=== PATIENT | male | born 1940 | race Caucasian/White ===

== ENCOUNTER 2018-08-14 14:51 | Emergency (ER) | payer MEDICARE, BC ==
[2018-08-14 15:14] VITALS: BP 137/77
[2018-08-14] MEDS ORDERED: Triamcinolone Acetonide* 40 MG/ML 1 ML VIAL IM ONE (15:56)
--- NOTE | 2018-08-14 15:56 | UC ---
Skin Complaint HPI - HPI Summary HPI Summary: 77 yo male with poison gayle x 1 week on arms and abd some areas oozing - History of Current Complaint Chief Complaint: UCSkin Time Seen by Provider: 08/14/18 15:51 Stated Complaint: RASH Hx Obtained From: Patient Onset/Duration: Sudden Onset Skin Exposure Onset/Duration: Minutes Ago Onset Severity: Mild Current Severity: None Pain Intensity: 0 Pain Scale Used: 0-10 Numeric Location: Other - see HPI Character: Pruritus, Pain, Redness Aggravating Factor(s): Nothing Alleviating Factor(s): OTC Meds Associated Signs & Symptoms: Positive: Rash - Allergy/Home Medications Allergies/Adverse Reactions: Allergies Allergy/AdvReac Type Severity Reaction Status Date / Time MS Penicillins [Penicillins] Allergy Hives Verified 10/20/12 07:31 Penicillins Allergy Hives Verified 08/14/18 15:07 Home Medications: Home Medications Aspirin 81 mg PO DAILY 08/14/18 [History Confirmed 08/14/18] Atenolol 12.5 mg PO DAILY 08/14/18 [History Confirmed 08/14/18] Chemo Med 08/14/18 [History] Finasteride [Proscar] 5 mg PO DAILY 08/14/18 [History Confirmed 08/14/18] Tumeric 1 tab PO DAILY 08/14/18 [History] PMH/Surg Hx/FS Hx/Imm Hx Previously Healthy: Yes Cardiovascular History: Hypertension Cancer History: Other - leukemia - Surgical History Surgery Procedure, Year, and Place: [place] [facility] [place] - Family History Known Family History: Positive: Hypertension Negative: Cardiac Disease, Diabetes - Social History Alcohol Use: Occasionally Substance Use Type: None Smoking Status (MU): Former Smoker Review of Systems All Other Systems Reviewed And Are Negative: Yes Constitutional: Positive: Negative Skin: Positive: Rash Eyes: Positive: Negative ENT: Positive: Negative Respiratory: Positive: Negative Cardiovascular: Positive: Negative Gastrointestinal: Positive: Negative Genitourinary: Positive: Negative Motor: Positive: Negative Neurovascular: Positive: Negative Musculoskeletal: Positive: Negative Neurological: Positive: Negative Psychological: Positive: Negative Physical Exam Triage Information Reviewed: Yes Appearance: Well-Appearing, No Pain Distress, Well-Nourished Vital Signs: Initial Vital Signs Temp 98.2 F 08/14/18 15:10 Pulse 75 08/14/18 15:10 Resp 18 08/14/18 15:10 BP 137/77 08/14/18 15:10 Pulse Ox 99 08/14/18 15:10 Vital Signs Reviewed: Yes Eyes: Positive: Conjunctiva Clear ENT: Positive: Hearing grossly normal. Negative: Nasal congestion, Nasal drainage, Tonsillar swelling, Tonsillar exudate, Trismus, Muffled voice, Hoarse voice Dental Exam: Normal Neck exam: Normal Respiratory: Positive: Lungs clear, Normal breath sounds, No respiratory distress Cardiovascular: Positive: RRR, No Murmur Musculoskeletal: Positive: ROM Intact, No Edema Neurological: Positive: Alert Psychological Exam: Normal Skin Exam: Other - rash c/w poison gayle Course/Dx - Diagnoses Provider Diagnosis: Contact dermatitis due to plant Discharge - Sign-Out/Discharge Documenting (check all that apply): Patient Departure All imaging exams completed and their final reports reviewed: No Studies - Discharge Plan Condition: Stable Disposition: HOME Patient Education Materials: Poison Gayle (ED) Referrals: Stanislaw Olivera MD [Primary Care Provider] - If Needed - Billing Disposition and Condition Condition: STABLE Disposition: Home
== END 2018-08-14 16:19 | disposition home or self-care (01) ==
LOC: UCEAST 14:51
DX: L25.5 Unspecified contact dermatitis due to plants, except food (principal); C95.90 Leukemia, unspecified not having achieved remission; I10 Essential (primary) hypertension; Z79.82 Long term (current) use of aspirin; Z88.0 Allergy status to penicillin; Z87.891 Personal history of nicotine dependence
CPT/HCPCS: 96372; 99201; G0463; J3301

== ENCOUNTER 2019-04-18 09:47 | Day surgery (SDC) | payer BC, MEDICARE, OTHER ==
[~2019-04-18 09:47] MED LIST: Acetaminophen TAB* 325 MG PO PRN; Buffered Lidocaine 1% SYRIN* 1 ML/SYRINGE INTRADERM ONE
[2019-04-18] MEDS ORDERED: acetaZOLAMIDE TAB* 250 MG ONE (10:02)
[2019-04-18] MEDS ORDERED: Cyclopentolate 1% OPTH.SOL* 2 ML BTL ONE (10:02)
[2019-04-18] MEDS ORDERED: Phenylephrine OPHTH SOL 2.5%* 2 ML ONE (10:02)
[2019-04-18] MEDS ORDERED: Povidone Iodine 5% OPTH* 30 ML BTL ONE (10:02)
[2019-04-18] MEDS ORDERED: Lidocaine 2% w/ EPI 1:200,000* 20 ML SDV VIAL ONE (10:02)
[2019-04-18] MEDS ORDERED: Neomycin/Polymy/Dex OPTH.SUSP* MAXITROL 0.1% 5 ML ONE (10:02)
[2019-04-18] MEDS ORDERED: Ketorolac 0.5% OPHTH (NF) 0.5 % 5 ML BTL ONE (10:02)
[2019-04-18] MEDS ORDERED: Lidocaine 1% MPF ** 5 ML VIAL ONE (10:02)
[2019-04-18] MEDS ORDERED: Proparacaine 0.5% OPHTH.SOL* 15 ML BTL ONE (10:02)
[2019-04-18] MEDS ORDERED: Midazolam* 1 MG/ML 5 ML VIAL (5 MG) ONE (11:36)
[2019-04-18 12:21] VITALS: BP 113/65
--- NOTE | 2019-04-18 17:00 | OP ---
DATE OF OPERATION: 04/18/2019 - [facility] DATE OF : 1940. SURGEON: Reji Guzman M.D. PREOPERATIVE DIAGNOSIS: Cataract left eye. POSTOPERATIVE DIAGNOSIS: Cataract left eye. OPERATIVE PROCEDURE: Extracapsular cataract extraction with intraocular lens implant left eye. DESCRIPTION OF PROCEDURE: The patient was brought to the operating room after being given 1/2% Alcaine with epinephrine drops in the preoperative area. The eye was prepped and draped in the usual sterile fashion. Sterile drape and eyelid speculum were placed. Again, topical 1/2% Alcaine with epinephrine was given. A paracentesis incision was made at the 3 o'clock position with the No.75 blade. Clear cornea incision 2.2 x 2.2-mm was created at the 6 o'clock position starting at the anterior limbus using the 2.2-mm keratome. The anterior chamber was irrigated with 0.4 mL of 1% non-preservative intracameral lidocaine and filled with DisCoVisc. A capsulorrhexis was completed using the cystotome and the Utrata forceps. Hydrodissection was performed with balanced salt solution. The lens nucleus was removed with the Phacoemulsification handpiece without incident. Cortex was removed with the irrigation-aspiration handpiece. The capsular bag was re-inflated using DisCoVisc and an [id number] implant was inserted with the shooter. The irrigation-aspiration handpiece was used to remove all residual DisCoVisc. The eye was refilled with balanced salt solution and the wound checked and found to be watertight. Topical Maxitrol drops were given. [id number] #: [id number] [facility]
== END 2019-04-18 12:30 | disposition home or self-care (01) ==
LOC: OREAST 09:47
PROVIDERS: ATTEND Specialist
DX: H25.12 Age-related nuclear cataract, left eye (principal); N40.0 Benign prostatic hyperplasia without lower urinary tract symptoms; H52.203 Unspecified astigmatism, bilateral; Z85.6 Personal history of leukemia; Z87.891 Personal history of nicotine dependence
CPT/HCPCS: A9270-GY; J2250; V2632